=== PATIENT | male | born 1945 | race Caucasian/White ===

== ENCOUNTER → 2024-03-05 14:53 | Outpatient (CLI) | payer MEDICARE, SELFPAY ==
--- NOTE | 2024-03-05 14:57 | DI.ECHO.S_ITS ---
[facility] : : [id number] : : [place] : : [id number] : : Phone: [phone] Echocardiogram Report + + :Name: SYL WHELAN Study Date: 03/05/2024 Height: 65 in : :[facility] ReadingLocation: Weight: 255 lb : : Gender: Male BSA: 2.2 m2 : :: 1945 Age: 78 yrs BP: 124/75 mmHg: :Reason For Study: DIASTOLIC HEART FAILURE : :Ordering Physician: GORDY, : :YVONNE Performed By: Carlos Kumar : :Referring: YVONNE KAMINSKI : + + Interpretation Summary The study quality was technically difficult. The ejection fraction is estimated to be 60-65%. Diastolic function could not be accurately assessed due to contradictory data. The right ventricle is normal in size and function. No obvious valvular abnormalities however limited visualization. Pulmonary artery pressures cannot be estimated because of the lack of a measurable TR jet velocity but the IVC suggests a CVP of around 3 mmHg. Compared to the prior study dated 04/18/2022, no significant change. Procedure: A two-dimensional transthoracic echocardiogram with color flow and Doppler was performed. The study quality was technically difficult. Comparison is made with the echocardiogram of 04/18/2022. The patient was in normal sinus rhythm during the exam. Left Ventricle: The left ventricle is normal in size. Left ventricular wall thickness is mildly increased. There is no ventricular septal defect visualized. The ejection fraction is estimated to be 60-65%. Diastolic function could not be accurately assessed due to contradictory data. Right Ventricle: The right ventricle is normal in size and function. Atria: The left atrial size is normal. The right atrium is mildly dilated. There is no Doppler evidence for an atrial septal defect. Mitral Valve: The mitral valve leaflets are mildly calcified. There is mild mitral annular calcification. There is no mitral regurgitation noted. Aortic Valve: The aortic valve is not well visualized. The aortic valve is mildly calcified. There is no hemodynamically significant valvular aortic stenosis. There is trace aortic regurgitation. Tricuspid Valve: The tricuspid valve is not well visualized. There is trace tricuspid regurgitation. Pulmonary artery pressures cannot be estimated because of the lack of a measurable TR jet velocity but the IVC suggests a CVP of around 3 mmHg. Pulmonic Valve: The pulmonic valve is not well visualized. There is no pulmonic valvular regurgitation. Great Vessels: The aortic root is mildly dilated. The ascending aorta could not be visualized. The pulmonary artery is normal size. The IVC is of normal diameter and collapses greater than 50% with a sniff. This suggests a low right atrial pressure of 3 mm Hg. Pericardium/ Pleura There is no pericardial effusion. There is no pleural effusion. MMode/2D Measurements & Calculations LVIDd: 5.3 cm LVOT diam: 2.3 cm LVIDs: 4.0 cm Ao root diam: 3.9 cm FS: 25.4 % Ao Arch Diam (Prox Trans): 2.8 cm EPSS: 1.5 cm IVSd: 1.2 cm LVPWd: 1.2 cm LV lui. diameter/BSA (cm/m^2): 2.4 LV sys. diameter/BSA (cm/m^2): 1.8 LA A2 area: 21.8 cm2 RA long axis: 5.1 cm LA A4 area: 26.0 cm2 RA area: 16.7 cm2 LA length (vol): 6.7 cm RA vol: 46.6 ml LA vol: 71.4 ml RA : 21.3 ml/m2 LA vol index: 32.6 ml/m2 IVC diam: 2.0 cm RVD1 (basal): 3.7 cm RVD2 (mid): 3.0 cm TAPSE: 2.2 cm Doppler Measurements & Calculations Ao V2 max: 238.0 cm/sec LVOT Max John: 98.5 cm/sec Ao V2 mean: 171.1 cm/sec LV V1 max P.9 mmHg Ao max P.7 mmHg LV V1 VTI: 24.1 cm Ao mean P.9 mmHg CARLOS(I,D): 1.8 cm2 Ao V2 VTI: 54.7 cm CARLOS(V,D): 1.7 cm2 sev ratio: 0.44 CARLOS indexed to BSA (cm^2/m^2): 0.80 MV E max john: 56.5 cm/sec TR max john: 253.3 cm/sec MV A max john: 76.4 cm/sec TR max P.7 mmHg MV E/A: 0.74 PA V2 max: 80.3 cm/sec Med Peak E' John: 3.0 cm/sec PA V2 mean: 53.2 cm/sec E/E' med: 18.6 PA mean P.3 mmHg Lat Peak E' John: 4.3 cm/sec PA pr(Accel): 46.5 mmHg E/E' lat: 13.2 E/e' average: 15.9 MV dec time: 0.29 sec SV(LVOT): 96.0 ml Reading Physician:12:53 PM
== END ==
PROVIDERS: Family Provider Family Medicine; PCP Family Medicine; Referring Provider Internal Medicine Cardiovascular Disease; Visit Provider Internal Medicine Cardiovascular Disease
DX: I34.81 Nonrheumatic mitral (valve) annulus calcification (principal); I77.810 Thoracic aortic ectasia; I50.32 Chronic diastolic (congestive) heart failure; I48.0 Paroxysmal atrial fibrillation
CPT/HCPCS: 93306

== ENCOUNTER → 2024-05-18 11:51 | Outpatient (CLI) | payer MEDICARE, SELFPAY ==
--- NOTE | 2024-05-18 14:28 | ST.SWALLOW ---
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 Pt was referred by Dr. Haines, ENT. Pt reported that he has choking episodes during meals at least 2x/week, increasing over the past 9-12 months. Pt described coughing with solids , liquids, medications, noting a sensation of things getting stuck in the area of his sternal notch. He has vomited undigested foods at times and reported significant phlegm in the mornings Pt PMH includes GERD and Schatzke's ring. He reported that approximately 5 years ago, he underwent EDG with dilation that reportedly eased his swallow difficulty at that time. Subjective Observations Pt was seated in the fluoroscopy chair with directions and procedures described for him. He indicated he understood and agreed to proceed. Patient Positioning Position View Lat-A/P Imaging Lateral View Textures Administered Trials Presented Thin Liquid via Spoon (IDDSI 0 ),Thin Liquid via Cup (IDDSI 0 ),Thin Liquid via Straw (IDDSI 0),Extremely Thick Liquid via Spoon (IDDSI 4),Regular ( IDDSI 7) Barium Tablet Yes The IDDSI Framework Protocol: IDDSI.1 Oral Impairment Source: The Modified Barium Swallow Impairment Profile (MBSImP??) Lip Closure No labial escape Tongue Control During Bolus Hold Cohesive bolus between tongue to palatal seal Bolus Preparation/Mastication Timely & efficient chewing & mashing Bolus Transport/Lingual Motion Brisk tongue motion Oral Residue Complete oral clearance Initiation of Pharyngeal Swallow Bolus head in valleculae Additional Oral Impairment Observations *OME and DKS were observed to be WNL. *Dentition natural and in good hygiene *Mastication observed with rotary chew pattern. *Good bolus formation, control and AP transition. Oral phase of swallow WNL Pharyngeal Impairment Source: The Modified Barium Swallow Impairment Profile (MBSImP??) Soft Palate Elevation No bolus between soft palate & pharyngeal wall Laryngeal Elevation Comp.sup.move.thyroid cart.w/ comp.approx.arytenoids to epiglot petiole Anterior Hyoid Excursion Complete anterior movement Epiglottic Movement Complete inversion Laryngeal Vestibular Closure Complete; no air/contrast in laryngeal vestibule Pharyngeal Stripping Wave Present - complete Pharyngoesophageal Segment Opening Complete distention & complete duration; no obstruction of flow Tongue Base Retraction No contrast between tongue base & posterior pharyngeal wall Pharyngeal Residue Complete pharyngeal clearance Additional Pharyngeal Impairment *Mild reduction in tongue base Observations retraction strength *Good hyolaryngeal elevation and epiglottic inversion *No contrast penetration into the laryngeal vestibule *No tracheal aspiration *No contrast residue in pharynx Pharyngeal phase of swallow WNL A/P View Textures Administered Trials Presented Thin Liquid via Cup (IDDSI 0), Moderately Thick Liquid via Spoon (IDDSI 3) The IDDSI Framework Protocol: IDDSI.1 A/P View Observations Pharyngeal Contraction Complete Esophageal Clearance Upright Position Esophageal retention w/ regtrograde flow below pharyngoesoph segment Vocal Fold Function Good Esophageal Function Slowed Clearing,Reverse Peristalsis,Stasis,Narrowing Additional A-P Observations *Calibrated tablet and thin liquid trials were presented *Esophageal retention observed mid chest after pt position changed to AP *Slow motility and esophageal clearance. Reverse flow noted at mid chest and at lower esophagus for liquids and barium tablet *Narrowing observed at the mid and lower esophagus *Barium tablet was stopped at the gastroesophageal junction for over a minute. Tablet observed to turn, move toward stomach, and reversed away from stomach before several swallows of water cleared tablet the tablet to the stomach Clinical Impressions Dysphagia Type Esophageal Findings Pt presented with normal oropharyngeal swallow function . Pt noted the sense that the trials were suck in the area of the sternal notch. When the pt described the sensation , the pharynx was clear. Pt's PMH includes Shatzke's ring, esophageal dilation and GERD (pt denied Rx for GERD). pPt described a previous esophageal dilation relieving his swallow difficulty. Further/additional assessment with GI is recommended Patient Appropriate for Therapy No Recommendations Diet Comments No diet changes recommended at this time Treatment Plan Recommended Referrals GI Consult Additional Strategies Recommended Slow rate of intake/increase fluids/allow gravity assistance
== END ==
PROVIDERS: Family Provider Family Medicine; PCP Family Medicine; Referring Provider Otolaryngology; Visit Provider Otolaryngology
DX: R13.14 Dysphagia, pharyngoesophageal phase (principal); R09.82 Postnasal drip; R09.89 Other specified symptoms and signs involving the circulatory and respiratory systems
CPT/HCPCS: 74230; 92611

== ENCOUNTER → 2024-06-30 13:45 | Outpatient (CLI) | payer MEDICARE, SELFPAY ==
--- NOTE | 2024-06-30 13:48 | DI.NM.S_ITS ---
PROCEDURE: NM RADHA PERF SPECT R&S PHARM Rest and pharmacological stress myocardial perfusion SPECT with gated imaging and ejection fraction RADIOPHARMACEUTICAL: 26.4 mCi Tc-99m tetrafosmin IV at rest and 26.8 mCi Tc-99m tetrafosmin IV at peak effect of pharmacological stress. [id number] was performed. INDICATIONS: BARRAGAN TECHNIQUE: Radiopharmaceutical was injected at peak stress test, and also at rest. SPECT images were obtained. SPECT myocardial perfusion images were displayed in short axis, horizontal long axis, and vertical long axis views. Gated images were reviewed using Wefunder software. COMPARISON: None. CARDIAC STRESS: An exercise stress test was initially performed using the Cornel protocol 3:12, maximum heart rate 100 bpm (70% peak predicted), peak blood pressure 158/71, 4.6 METS, JUDIT +34%. The patient exhibited significant shortness of breath with exertion so the test was switched to a pharmacologic. A pharmacologic stress test was performed under the supervision of an attending staff, using an infusion of regadenoson 0.4 mg IV. Hemodynamic data: There is normal blood pressure and heart rate response to pharmacologic stress. Symptoms: The patient denied anginal chest pain. EKG: No diagnostic changes of ischemia; no ectopy. FINDINGS: Raw data: There is good myocardial uptake of radiotracer. No significant motion artifacts. Qkab-[id number] ratio is 0.30 (normal is less than 0.38 for tetrafosmin tracer). Left ventricle function: Gated images demonstrate normal left ventricular wall thickening. No segmental wall motion abnormalities. No transient ischemic dilation; TID is 0.92 (normal less than 1.3). Left ventricle resting end diastolic volume is 113 mL. Left ventricle stress ejection fraction is 74%; normal range is above 45%. Myocardial perfusion: There is normal distribution of activity in the right and left ventricular myocardium. No fixed or reversible perfusion defects. IMPRESSION: Low risk study. Exercise study switched to pharmacologic due to dyspnea on exertion. No evidence of pharmacologic induced ischemia or scar. Normal LV size and function. Dictated by: Bambi Bass D.O. on 07/02/2024 at 17:32 Approved by: Bambi Bass D.O. on 07/02/2024 at 17:35
== END ==
LOC: NUCM 13:47
PROVIDERS: Family Provider Family Medicine; PCP Family Medicine; Referring Provider Nurse Practitioner Acute Care; Visit Provider Nurse Practitioner Acute Care
DX: R06.09 Other forms of dyspnea (principal)
CPT/HCPCS: 78452; 93017; A9502; J2785

== ENCOUNTER → 2024-09-06 15:17 | Outpatient (CLI) | payer MEDICARE, SELFPAY ==
--- NOTE | 2024-09-06 15:18 | DI.MRI.S_ITS ---
PROCEDURE: MR BRAIN (IAC) WWO CON INDICATIONS: Hearing loss TECHNIQUE: Noncontrast sagittal T1 spin echo, axial FLAIR, axial gradient echo, axial diffusion and ADC through the brain. Axial thin-slice 3D CISS, coronal TruFISP, axial T1 spin echo with fat saturation through the internal auditory canals. After the administration of contrast, thin slice axial and coronal T1 spin echo with fat saturation through the internal auditory canals, and axial and coronal and sagittal T1 spin echo with fat saturation through the brain. COMPARISON: None. FINDINGS: Image quality: Excellent. Cerebellopontine angles: No cerebellopontine angle masses. Inner ear structures appear normally formed. No suspicious enhancement in the internal auditory canal or along the course of the 7th cranial nerve. CSF spaces: Ventricles are normal in size and shape. No extra-axial fluid collections. Basal cisterns are patent. Brain: No intracranial bleeds or mass effects. Jiang-white matter interface is intact. No abnormal intracranial enhancement. Diffusion weighted images demonstrate no acute ischemic insults. Brainstem appears normal. Normal intravascular flow voids are present. Moderate atrophy and white matter chronic ischemic change Skull and face: Calvarial marrow signal is normal. Orbits appear normal. Sinuses: Sinuses and mastoids are clear. IMPRESSION: Atrophy and chronic ischemic change without acute infarct, hemorrhage or mass lesion. Unremarkable 7th and 8th cranial nerve complexes and internal auditory canal without evidence of acoustic schwannoma Approved by: Roland Schultz M.D. on 09/07/2024 at 11:29
== END ==
PROVIDERS: Referring Provider Otolaryngology; Visit Provider Otolaryngology
DX: H90.3 Sensorineural hearing loss, bilateral (principal); H93.299 Other abnormal auditory perceptions, unspecified ear
CPT/HCPCS: 70553; A9579